=== PATIENT | female | born 1960 | race Caucasian/White ===

== ENCOUNTER 2019-04-23 19:41 | Emergency (ER) | payer MEDICAID ==
[~2019-04-23] VITALS: Ht 154.9 cm; Wt 83.5 kg
[2019-04-23 19:44] VITALS: Ht 154.9 cm; Wt 83.5 kg
--- NOTE | 2019-04-23 21:06 | ERD ---
ER Documentation Chief Complaint Chief Complaint L FOOT PAIN X'S 3 WEEKS HPI Patient is a 58 years old female with PMHx of HLD, Osteoporosis, Gastritis, and hypothyroidism presenting to the clinic for left foot pain x 3 weeks. Patient reports left foot pain came out of the sudden and rates the pain as severe and denies take any OTC medication. Patient denies any trauma, injury, swelling, fever, chills, night sweats. Patient reports of sensation of LUQ abdominal mass x 1 year. Patient states that she has been evaluated by her PCP and could not find any cause of her symptom. Patient states that provider gave her some pain medication without resolution of symptoms. Patient reports that when she grabs her left upper quadrant area, she feels nauseous without emesis. Currently patient denies any nausea, emesis, constipation, diarrhea, hematochezia, melena, urinary symptoms, vaginal discharge, vaginal bleeding. When provider asked for patient to give more thorough detailed of her symptoms, patient responded with " I do not know, you tell me." Provider had a difficult time gathering HPI from patient. ROS All systems reviewed and are negative except as per history of present illness. Allergies Allergies: Coded Allergies: No Known Allergy (Unverified , 04/23/19) PMhx/Soc Hx Alcohol Use: No Hx Substance Use: No Hx Tobacco Use: No Smoking Status: Never smoker Physical Exam Vitals Vital Signs Date Temp Pulse Resp B/P (MAP) Pulse Ox O2 O2 Flow FiO2 Time Delivery Rate 04/23/19 97.9 81 18 142/65 99 19:44 (90) Physical Exam Const: No acute distress. Patient is sitting comfortably on exam bed without any discomfort. Head: Atraumatic Eyes: Normal Conjunctiva Resp: Clear to auscultation bilaterally Cardio: Regular rate and rhythm, no murmurs Abd: Soft, non tender, non distended. Normal bowel sounds. Negative Longo sign, Rovsing sign, McBurney's point tenderness, guarding, rebound tenderness, Dai Babb sign, [place] sign. Skin: No petechiae or rashes Back: No midline or flank tenderness. Negative CVAT. Ext: No cyanosis, or edema Neur: Awake and alert Psych: Normal Mood and Affect Left foot exam: Tenderness along arc of foot and calcaneal region. No swelling, erythema, induration, skin perforation. Neurovascular exam intact. Skin intact. Result Diagram: 7/15/19 2121 7/15/19 2121 Results 24 hrs Laboratory Tests Test 04/23/19 21:21 White Blood Count 6.5 10^3/ul Red Blood Count 4.33 10^6/ul Hemoglobin 13.0 g/dl Hematocrit 40.7 % Mean Corpuscular Volume 94.0 fl Mean Corpuscular Hemoglobin 30.0 pg Mean Corpuscular Hemoglobin Concent 31.9 g/dl Red Cell Distribution Width 11.7 % Platelet Count 281 10^3/UL Mean Platelet Volume 11.0 fl Immature Granulocytes % 0.500 % Neutrophils % 48.0 % Lymphocytes % 34.0 % Monocytes % 13.3 % Eosinophils % 3.4 % Basophils % 0.8 % Nucleated Red Blood Cells % 0.0 /100WBC Immature Granulocytes # 0.030 10^3/ul Neutrophils # 3.1 10^3/ul Lymphocytes # 2.2 10^3/ul Monocytes # 0.9 10^3/ul Eosinophils # 0.2 10^3/ul Basophils # 0.1 10^3/ul Nucleated Red Blood Cells # 0.0 10^3/ul Urine Color YELLOW Urine Clarity CLEAR Urine pH 5.0 Urine Specific [place] 1.017 Urine Ketones NEGATIVE mg/dL Urine Nitrite NEGATIVE mg/dL Urine Bilirubin NEGATIVE mg/dL Urine Urobilinogen NEGATIVE mg/dL Urine Leukocyte Esterase NEGATIVE [place]/ul Urine Hemoglobin NEGATIVE mg/dL Urine Glucose NEGATIVE mg/dL Urine Total Protein NEGATIVE mg/dl Sodium Level 141 mmol/L Potassium Level 4.5 mmol/L Chloride Level 104 mmol/L Carbon Dioxide Level 29 mmol/L Anion Gap 8 Blood Urea Nitrogen 13 mg/dl Creatinine 0.56 mg/dl Est Glomerular Filtrat Rate mL/min > 60 mL/min Glucose Level 101 mg/dl Uric Acid 5.6 mg/dl Calcium Level 10.0 mg/dl Total Bilirubin 0.7 mg/dl Direct Bilirubin 0.00 mg/dl Indirect Bilirubin 0.7 mg/dl Aspartate Amino Transf (AST/SGOT) 31 IU/L Alanine Aminotransferase (ALT/SGPT) 51 IU/L Alkaline Phosphatase 89 IU/L Total Protein 7.8 g/dl Albumin 4.3 g/dl Globulin 3.50 g/dl Albumin/Globulin Ratio 1.22 Current Medications Medications Dose Sig/Lela Start Time Status Last (Trade) Ordered Route PRN Stop Time Admin Dose Reason Admin 650 mg ONCE ONCE 04/23/19 DC 04/23/19 Acetaminophen PO 21:30 21:36 (Tylenol 04/23/19 21:31 Tab) Ondansetron 4 mg ONCE STAT 04/23/19 DC 04/23/19 HCl (Zofran ODT 21:09 21:35 Odt) 04/23/19 21:12 40 mg ONCE ONCE 04/23/19 DC 04/23/19 Pantoprazole PO 21:30 21:35 (Protonix 04/23/19 21:31 Tab) Procedures/MDM Patient was seen and evaluated for left foot pain and sensation of left upper quadrant mass. CBC, CMP, urinalysis, uric acid are grossly unremarkable. Left foot x-ray revealed No fracture or dislocation of the left foot. . Tylenol 650 mg, Protonix 40 mg, Zofran 4 mg administered in the ED with significant improvement of symptoms. Patient has an unremarkable abdominal exam and does not require no further imaging. Low suspicion for colitis, appendicitis, cholecystitis, perforation, sepsis. Patient is most likely experiencing gastritis to mostly the cause of her left upper quadrant discomfort with nausea. Patient stable ready for discharge. Follow-up with PCP. Patient will be discha rged with Zofran, omeprazole, and Tylenol. Departure Diagnosis: Primary Impression: Foot pain Laterality: left Qualified Codes: M79.672 - Pain in left foot Condition: Stable Referrals: [facility] Additional Instructions: Paciente aconseja volver a Departamento de urgencias inmediatamente para sntoma s nuevos o que empeoran . Paciente aconseja posteriores con el PCP en 2-3 abreu . Paciente verbaliza la comprehensin y est de acuerdo con el tratamiento y el curso de accin. Si el paciente no tiene ninguna de atencin primaria pueden seguir con [facility] [address] [place] [address] o [facility] + [address] [address] MIR MORAN PA-C Apr 23, 2019 21:06
[2019-04-23] MEDS ORDERED: ONDANSETRON (ODT) 4 MG TAB ODT STA (21:09)
[2019-04-23] MEDS ORDERED: PANTOPRAZOLE (EC) 40 MG TAB PO ONE (21:30)
[2019-04-23] MEDS ORDERED: ACETAMINOPHEN 325 MG TAB PO ONE (21:30)
[2019-04-23] MEDS ORDERED: OMEP20CA16 PO (22:40)
[2019-04-23] MEDS ORDERED: ONDA4TAB8 PO (22:40)
[2019-04-23] MEDS ORDERED: ACET500C5 PO (22:40)
[2019-04-23 22:51] VITALS: BP 135/61; PULSE 64; RESP 16
== END 2019-04-23 22:52 | disposition home or self-care (01) ==
LOC: FTE 19:41
DX: M79.672 Pain in left foot (principal); R19.02 Left upper quadrant abdominal swelling, mass and lump
CPT/HCPCS: 36415; 73630; 80053; 81003; 84560; 85025; Z7502; Z7610